=== PATIENT | female | born 1995 | race Caucasian/White ===

== ENCOUNTER 2017-06-29 19:28 | Emergency (ER) | payer BC ==
--- NOTE | 2017-06-29 20:06 | EDM.PDOC ---
ED HPI GENERAL MEDICAL PROBLEM - General Chief Complaint: Respiratory Problem Stated Complaint: FLU SYMPTOMS Time Seen by Provider: 06/29/17 19:30 Source of Information: Reports: Patient, Family History Limitations: Reports: No Limitations - History of Present Illness INITIAL COMMENTS - FREE TEXT/NARRATIVE: 21 y.o.w.f came to the ed with sinus tenderness for one week. Infuenza A test was negative. Pt was taking tamiflu anyway for 5 days with out improvement. No N /V/D fever or chills. No other acute medical issues. BP 113/67 pulse 67 temp 36.6 Pulse ox 98% on RA. Onset Date: 06/19/17 Onset Time: 07:00 Duration: Day(s):, Intermittent Location: Reports: Face Quality: Reports: Ache, Burning Severity: Mild Improves with: Reports: Rest Worsens with: Reports: Movement Context: Reports: Other (sinus tenderness ) Associated Symptoms: Reports: No Other Symptoms - Related Data Allergies Allergy/AdvReac Type Severity Reaction Status Date / Time morphine Allergy Difficulty Verified 06/29/17 19:44 Breathing Home Meds: Home Meds Amoxicillin/Potassium Clav [Augmentin 875-125 Tablet] 1 each PO BID #20 tablet 06/29/17 [Rx] Past Medical History [employer] History: Reports: Social & Family History - Family History Family Medical History: Unobtainable - Tobacco Use Smoking Status *Q: Never Smoker - Caffeine Use Caffeine Use: Reports: Tea - Recreational Drug Use Recreational Drug Use: No ED ROS GENERAL - Review of Systems Review Of Systems: See Below Constitutional: Reports: No Symptoms HEENT: Reports: Sinus Problem Respiratory: Reports: No Symptoms Cardiovascular: Reports: No Symptoms Endocrine: Reports: No Symptoms GI/Abdominal: Reports: No Symptoms : Reports: No Symptoms Musculoskeletal: Reports: No Symptoms Skin: Reports: No Symptoms Neurological: Reports: No Symptoms Psychiatric: Reports: No Symptoms Hematologic/Lymphatic: Reports: No Symptoms Immunologic: Reports: No Symptoms ED EXAM, GENERAL - Physical Exam Exam: See Below Exam Limited By: No Limitations General Appearance: Alert, WD/WN, Mild Distress Eye Exam: Bilateral Eye: Abnormal EOM Ears: Normal External Exam Ear Exam: Bilateral Ear: Auricle Normal Nose: Normal Inspection, Normal Mucosa Throat/Mouth: Normal Inspection, Normal Lips, Normal Teeth Head: Atraumatic, Normocephalic, Facial Tenderness Neck: Normal Inspection, Supple, Non-Tender, Full Range of Motion Respiratory/Chest: No Respiratory Distress, Lungs Clear, Normal Breath Sounds, Chest Non-Tender Cardiovascular: Normal Peripheral Pulses, Regular Rate, Rhythm, No Edema, No Gallop, No Murmur, No Rub Peripheral Pulses: 1+: Radial (R) GI/Abdominal: Normal Bowel Sounds, Soft, Non-Tender, No Organomegaly, No Abnormal Bruit, No Mass, Pelvis Stable (Female) Exam: Deferred Rectal (Female) Exam: Deferred Back Exam: Normal Inspection, Full Range of Motion Extremities: Normal Inspection, Normal Range of Motion, Non-Tender, No Pedal Edema, Normal Capillary Refill Neurological: Alert, Oriented, CN II-XII Intact, Normal Cognition, Normal Gait, No Motor/Sensory Deficits Psychiatric: Normal Affect, Normal Mood Skin Exam: Warm, Dry, Intact, Normal Color, No Rash Lymphatic: No Adenopathy Course - Vital Signs Text/Narrative:: 21 y.o.w.f came to the ed with sinus tenderness for one week. Infuenza A test was negative. Pt was taking tamiflu anyway for 5 days with out improvement. No N /V/D fever or chills. No other acute medical issues. BP 113/67 pulse 67 temp 36.6 Pulse ox 98% on RA. PE: sinus tenderness Imaging: Acute bacterial bal sinusitis Impression: Acute bacterial bal sinusitis Tx: Amoxicillin Reexam: Improved Plan: D/C with instructions Last Recorded V/S: Last Vital Signs Temp 36.5 C 06/29/17 21:23 Pulse 62 06/29/17 21:23 Resp 17 06/29/17 21:23 BP 110/71 06/29/17 21:23 Pulse Ox 100 06/29/17 21:23 - Orders/Labs/Meds Meds: Medications Discontinued Medications Generic Name Dose Route Start Last Admin Trade Name Freq PRN Reason Stop Dose Admin Amoxicillin/Clavulanate Potassium 1 tab 06/29/17 21:15 06/29/17 21:21 Augmentin 875 Mg/125 Mg PO 06/29/17 21:16 1 tab ONETIME ONE Administration Departure - Departure Time of Disposition: 21:11 Disposition: Home, Self-Care 01 Condition: Good Clinical Impression: Sinusitis Qualifiers: Sinusitis location: pansinusitis Chronicity: acute Recurrence: non-recurrent Qualified Code(s): J01.40 - Acute pansinusitis, unspecified - Discharge Information Prescriptions: Amoxicillin/Potassium Clav [Augmentin 875-125 Tablet] 1 each PO BID #20 tablet Instructions: Sinusitis, Adult, [id number] Referrals: Jennifer Marin [employer] [Primary Care Provider] - Forms: ED Department Discharge Additional Instructions: Please take the Abx as recommended, please increase water intake, please follow up with your ENT physician in 1-2 weeks, please come back if your symptoms get worse acutely
[2017-06-29] MEDS ORDERED: Amoxicillin/Clavulanate K 875-125 MG Tab PO ONE (21:15)
== END 2017-06-29 21:24 | disposition home or self-care (01) ==
LOC: FB.ED 19:28
DX: J01.40 Acute pansinusitis, unspecified (principal); B96.89 Other specified bacterial agents as the cause of diseases classified elsewhere; Z88.5 Allergy status to narcotic agent
CPT/HCPCS: 70486; 99283; A9270